=== PATIENT | female | born 1965 | race Caucasian/White ===

== ENCOUNTER 2021-04-29 21:53 | Inpatient (IN) | payer OTHER ==
[~2021-04-29] VITALS: Ht 167.6 cm; Wt 94.5 kg
[2021-04-29] MEDS ORDERED: [UNRECOGNIZED DRUG - OTHER] PO (22:53)
[2021-04-29] MEDS ORDERED: METO1TAB13 PO (22:53)
[2021-04-29] MEDS ORDERED: ASPI-1450 PO (22:53)
[2021-04-29 23:53] LABS: BASOPHILS % (AUTO) 0.5 % (0.0-2.0); EOSINOPHILS % (AUTO) 0.1 % (1.0-6.0); HEMATOCRIT 39.7 % (36-46); LYMPHOCYTES # (AUTO) 1.2 K/uL (1.0-4.8); MEAN CORPUSCULAR HEMOGLOBIN 25.7 pg (26.0-34.0); MEAN CORPUSCULAR HGB CONC 32.8 G/dL (31.0-37.0); MEAN CORPUSCULAR VOLUME 78 fL (80-100); MONOCYTES # (AUTO) 0.5 K/uL (0.1-1.0); MONOCYTES % (AUTO) 4.6 % (2.0-9.0); NEUTROPHILS # (AUTO) 8.2 K/uL (1.8-7.7); NEUTROPHILS % (AUTO) 82.8 % (40.0-70.0); PLATELET COUNT (AUTO) 270 K/uL (150-450); RED BLOOD CELL COUNT(AUTO) 5.06 MIL/uL (4.00-5.20); RED CELL DISTRIBUTION WIDTH 16.3 % (11.5-14.5)
[2021-04-29 23:53] LABS: COVID AG,FIA SOURCE NASOPHARYNGEAL
[2021-04-30] VITALS (10 sets, daily range): BP systolic 130–156; BP diastolic 73–94
[2021-04-30 00:08] LABS: ALANINE AMINOTRANSFERASE 18 U/L (12-78); ALBUMIN 3.1 g/dL (3.4-5.0); ALKALINE PHOSPHATASE 106 U/L (46-116); ANION GAP 7 mmol/L (8-16); ASPARTATE AMINOTRANSFERASE 19 U/L (15-37); BILIRUBIN,TOTAL 0.8 mg/dL (0.1-1.0); CALCIUM, TOTAL 9.1 mg/dL (8.8-10.5); CARBON DIOXIDE 26 mmol/L (22-29); CHLORIDE 103 mmol/L (98-107); CREATININE 0.85 mg/dL (0.60-1.30); GLOMERULAR FILTR. RATE CALC > 60 mL/min (>60); GLUCOSE,RANDOM 117 mg/dL (70-110); LIPASE 42 U/L (73-393); POTASSIUM 3.5 mmol/L (3.5-5.1); SODIUM SERUM 136 mmol/L (136-145); TOTAL PROTEIN, SERUM 7.7 g/dL (6.4-8.2); UREA NITROGEN, BLOOD 11 mg/dL (7-18)
[2021-04-30 00:17] LABS: B-TYPE NATRIURETIC PEPTIDE 56 pg/mL (0-100)
[2021-04-30 01:17] LABS: APPEARANCE,URINE CLEAR (CLEAR); BILIRUBIN,URINE NEGATIVE (NEGATIVE); GLUCOSE, URINE (UA) NEGATIVE (NEGATIVE); KETONES,URINE >=80 mg/dL (NEGATIVE); LEUKOCYTE ESTERASE ,URINE SMALL (NEGATIVE); NITRATE,URINE NEGATIVE (NEGATIVE); OCCULT BLOOD,URINE MODERATE (NEGATIVE); PROTEIN,URINE TRACE (NEGATIVE); UROBILINOGEN,URINE 0.2 mg/dL (<=1.0)
[2021-04-30 01:21] LABS: AMPHET/METH SCREEN,URINE POSITIVE (NEGATIVE); BARBITURATE SCREEN, URINE NEGATIVE (NEGATIVE); BENZODIAZEPINES SCREEN,URINE POSITIVE (NEGATIVE); CANNABINOID SCREEN,URINE NEGATIVE (NEGATIVE); COCAINE SCREEN,URINE NEGATIVE (NEGATIVE); METHADONE SCREEN, URINE NEGATIVE (NEGATIVE); OPIATE SCREEN,URINE POSITIVE (NEGATIVE)
[2021-04-30 01:22] LABS: PHENCYCLIDINE SCREEN,URINE NEGATIVE (NEGATIVE)
[2021-04-30 01:27] LABS: BACTERIA,URINE Few /HPF (None Seen)
[2021-04-30 01:28] LABS: SQUAMOUS EPITHELIAL CELL,UR Few /LPF (None Seen)
[2021-04-30] MEDS ORDERED: ASPIRIN 325 MG TABLET PO ONE (02:00)
[2021-04-30] MEDS ORDERED: DILTIAZEM HCL 30 MG TABLET PO ONE (02:30)
[2021-04-30] MEDS ORDERED: DIAZEPAM 5 MG/ML 2 ML SYRINGE IVP ONE (03:00)
[2021-04-30] MEDS: ONDANSETRON HCL 4 MG/2 ML VIAL IVP PRN ×2 (03:06→08:31)
[2021-04-30] MEDS: ACETAMINOPHEN 325 MG TABLET PO PRN (04:52)
[2021-04-30] MEDS ORDERED: LORazepam 2 MG TABLET PO PRN (06:45)
[2021-04-30] MEDS: ASPIRIN 81 MG CHEWABLE TABLET PO SCH (11:00)
[2021-04-30] MEDS ORDERED: LORazepam 2 MG/ML VIAL ONE (11:12)
[2021-04-30] MEDS ORDERED: METOCLOPRAMIDE HCL 5 MG/ML 2 ML VIAL IM ONE (11:15)
[2021-04-30] MEDS ORDERED: METO50 PO (11:22)
[2021-04-30] MEDS ORDERED: METH10 PO (11:22)
[2021-04-30] MEDS ORDERED: METOCLOPRAMIDE HCL 5 MG/ML 2 ML VIAL ONE (11:25)
[2021-04-30] MEDS: RINGERS SOLUTION,LACTATED 1,000 ML IV SCH ×2 (11:30→23:41)
[2021-04-30] MEDS ORDERED: METHADONE HCL 10 MG/5 ML SOLUTION ORAL.SYG PO ONE (12:00)
[2021-04-30] MEDS ORDERED: LORazepam 2 MG/ML VIAL IVP PRN (21:30)
[2021-04-30] MEDS: MELATONIN 3 MG TABLET PO PRN (21:37)
[2021-05-01 04:00] VITALS: BP 136/82
[2021-05-01] MEDS ORDERED: LORazepam 2 MG TABLET PO PRN (07:00)
[2021-05-01 07:21] VITALS: BP 151/95
[2021-05-01] MEDS: ASPIRIN 81 MG CHEWABLE TABLET PO SCH (08:58)
[2021-05-01] MEDS ORDERED: METHADONE HCL 10 MG/5 ML SOLUTION ORAL.SYG PO SCH (09:00)
[2021-05-01] MEDS ORDERED: LORazepam 2 MG TABLET PO SCH (09:00)
[2021-05-01 11:37] VITALS: BP 130/76
[2021-05-01 16:19] VITALS: BP 131/69
[2021-05-01] MEDS: ACETAMINOPHEN 325 MG TABLET PO PRN (16:43)
[2021-05-01 20:02] VITALS: BP 133/76
[2021-05-01] MEDS: MELATONIN 3 MG TABLET PO PRN (23:52)
[2021-05-02 00:15] VITALS: BP 125/83
[2021-05-02 05:47] VITALS: BP 138/90
[2021-05-02 07:41] VITALS: BP 118/75
[2021-05-02] MEDS: ASPIRIN 81 MG CHEWABLE TABLET PO SCH (08:31)
[2021-05-02] MEDS ORDERED: METHADONE HCL 10 MG/5 ML SOLUTION ORAL.SYG PO SCH (09:00)
[2021-05-02] MEDS ORDERED: METHADONE HCL 10 MG TABLET PO SCH (09:00)
[2021-05-02 11:05] VITALS: BP 111/71
[2021-05-02] MEDS ORDERED: MELA3TAB89 PO (12:26)
[2021-05-02] MEDS ORDERED: ACET-2247 PO (12:26)
[2021-05-03] MEDS ORDERED: LORazepam 1 MG TABLET PO PRN (07:00)
[2021-05-03] MEDS ORDERED: METHADONE HCL 10 MG/5 ML SOLUTION ORAL.SYG PO SCH (09:00)
[2021-05-03] MEDS ORDERED: LORazepam 1 MG TABLET PO SCH (09:00)
[2021-05-03] MEDS ORDERED: METHADONE HCL 10 MG TABLET PO SCH (09:00)
[2021-05-04] MEDS ORDERED: LORazepam 1 MG TABLET PO PRN (07:00)
[2021-05-04] MEDS ORDERED: METHADONE HCL 10 MG/5 ML SOLUTION ORAL.SYG PO SCH (09:00)
[2021-05-05] MEDS ORDERED: METHADONE HCL 10 MG/5 ML SOLUTION ORAL.SYG PO SCH (09:00)
== END 2021-05-02 13:25 | disposition left against medical advice (07) | DRG 894 ==
LOC: EMS 21:53 → 5S 04-30 00:54
PROVIDERS: ADMIT Internal Medicine; ATTEND Internal Medicine
DX: F11.13 Opioid abuse with withdrawal (principal); G25.3 Myoclonus; I10 Essential (primary) hypertension; I49.5 Sick sinus syndrome; F19.10 Other psychoactive substance abuse, uncomplicated; F17.210 Nicotine dependence, cigarettes, uncomplicated; Z20.822 Contact with and (suspected) exposure to COVID-19; Z53.29 Procedure and treatment not carried out because of patient's decision for other reasons; E66.9 Obesity, unspecified; Z95.0 Presence of cardiac pacemaker; Z91.041 Radiographic dye allergy status; Z68.33 Body mass index [BMI] 33.0-33.9, adult
CPT/HCPCS: 71045; 80053; 81001; 83690; 83880; 84484; 85025; 93005; 93306; 99285; G0480; J2060; J2405; J2765; J7120; 36415-L1; 36415-TC

== ENCOUNTER 2021-05-02 17:47 | Emergency (ER) | payer OTHER ==
[~2021-05-02] VITALS: Ht 167.6 cm; Wt 100.0 kg
[~2021-05-02 17:47] MED LIST: ACET-2247 PO; ASPI-1450 PO; MELA3TAB89 PO; METH10 PO; METO50 PO
[2021-05-02] MEDS ORDERED: MAGNESIUM CITRATE 300 ML ORAL SOLUTION PO ONE (20:45)
[2021-05-02 20:50] VITALS: BP 119/66
== END 2021-05-02 21:10 | disposition home or self-care (01) ==
LOC: EMS 17:47
DX: K59.00 Constipation, unspecified (principal); I10 Essential (primary) hypertension; F17.210 Nicotine dependence, cigarettes, uncomplicated; F11.90 Opioid use, unspecified, uncomplicated; Z65.3 Problems related to other legal circumstances; Z79.82 Long term (current) use of aspirin; Z88.8 Allergy status to other drugs, medicaments and biological substances
CPT/HCPCS: 71250; 72192; 74150; 74176; 99285; Z7502